=== PATIENT | male | born 1960 | race Caucasian/White ===

== ENCOUNTER 2020-12-11 20:39 | Emergency (ER) | payer OTHER, SELFPAY ==
[2020-12-11 20:40] VITALS: BP 158/82; PULSE 82; RESP 18; TEMP 36.7; O2SAT 94; BMI 39.7
--- NOTE | 2020-12-11 20:45 | CTR_ITS ---
PROCEDURE INFORMATION: Exam: CT Head Without Contrast Exam date and time: 12/11/2020 8:45 PM Age: 60 years old Clinical indication: Syncope and collapse; Patient HX: Overheated - syncope; Additional info: Fall TECHNIQUE: Imaging protocol: Computed tomography of the head without contrast. Radiation optimization: All CT scans at this facility use at least one of these dose optimization techniques: automated exposure control; mA and/or kV adjustment per patient size (includes targeted exams where dose is matched to clinical indication); or iterative reconstruction. COMPARISON: No relevant prior studies available. RADIATION DOSE METRICS: Total DLP (mGy-cm): 954.01 FINDINGS: There is mild generalized atrophy. There are mild areas of decreased attenuation in the periventricular white matter which is nonspecific but likely relates to small vessel ischemic change. There is no evidence for acute infarct. There is no evidence for mass. There is no hemorrhage. There are no extra-axial fluid collections. There is no midline shift. The skull is intact. The visualized paranasal sinuses are well aerated. There is atherosclerotic change of the cavernous carotid arteries. CT/CT head wo con* [id number] IMPRESSION: No evidence for acute intracranial injury. Radiation Dose CTDIVOL = (mGy): DLP = 954.01 (mGy-cm)
--- NOTE | 2020-12-11 20:45 | CTR_ITS ---
PROCEDURE INFORMATION: Exam: CT Cervical Spine Without Contrast Exam date and time: 12/11/2020 8:45 PM Age: 60 years old Clinical indication: Injury or trauma; Blunt trauma; Patient HX: Syncope and fall TECHNIQUE: Imaging protocol: Computed tomography images of the cervical spine without contrast. Radiation optimization: All CT scans at this facility use at least one of these dose optimization techniques: automated exposure control; mA and/or kV adjustment per patient size (includes targeted exams where dose is matched to clinical indication); or iterative reconstruction. COMPARISON: No relevant prior studies available. RADIATION DOSE METRICS: Total DLP (mGy-cm): 730.52 FINDINGS: There is some straightening of the normal cervical lordosis. This may be due to muscle spasm or patient positioning. There is no evidence of fracture or subluxation. The vertebral bodies are of normal height. The there is disc space narrowing at C5-C6 and C6-C7 with endplate spurring. The prevertebral soft tissues and the predental space are unremarkable. There are degenerative changes about the C1-C2 articulation. There are degenerative changes of the facet joints and uncovertebral joints. There is mild central stenosis at C5-C6 and C6-C7. There is no evidence for epidural hematoma. Carotid calcifications are noted. CT/CT cervical spin wo con* [id number] IMPRESSION: There is some straightening of the normal cervical lordosis. This may be due to muscle spasm or patient positioning. There is no evidence of fracture or subluxation. Radiation Dose CTDIVOL = (mGy): DLP = 730.52 (mGy-cm)
--- NOTE | 2020-12-11 20:46 | ECG_ITS ---
[facility] Test Date: 2020-12-11 Pat Name: KVNG GREEN Department: Room: Gender: Male Siene Maker: : 1960 Requested By: Terry Gómez Order Number: [id number] Dino MD: Mandi Short M.D. Measurements Intervals [place] Rate: 77 P: 57 CA: 210 QRS: 24 QRSD: 86 T: 127 QT: 394 QTc: 446 Interpretive Statements SINUS RHYTHM WITH FIRST DEGREE AV BLOCK NONSPECIFIC T-WAVE ABNORMALITY No previous ECG available for comparison Electronically Signed On 12-11-2020 22:51:08 CDT by Mandi Short M.D. [id number]
--- NOTE | 2020-12-11 20:49 | ED_ITS ---
HPI - Nausea/Vomiting/Diarrhea General: Chief complaint: Nausea/Vomiting/Diarrhea Stated complaint: N/V/FALL Time Seen by Provider: 12/11/20 20:41 Source: patient and EMS Mode of arrival: EMS Limitations: no limitations History of Present Illness: HPI Narrative: 60-year-old male is here by EMS after heat exposure today. 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 He states he did fall as well and hit the back of his head on a 2 x 4. He denies passing out but states he has felt weak ever since is continue to have some nausea. He denies any chest pain. Associated nausea: Yes Associated symtoms: Reports nausea; Denies chest pain or dysuria Review of Systems Const: Denies: fever(s), chills, body aches or change in appetite Eyes: Denies: blurry vision or eye discomfort ENMT: Denies: throat pain or dental pain Card: Denies: chest pain Resp: Denies: dyspnea GI: Reports: nausea and vomiting : Denies: dysuria Musc: Denies: neck pain or back pain Skin/Breast: Denies: rash Neuro: Reports: weakness in extremities Psych: Denies: depression Christ/Lymph: Denies: easy bruising All/Imm: Denies: urticaria Physical Exam Const: COMMON NORMALS: no acute distress, patient oriented x3 and healthy appearing HENMT: COMMON NORMALS: normocephalic and atraumatic HEAD & SCALP: normocephalic and atraumatic Eye: COMMON NORMALS: Equal, round and reactive pupils present and EOMs intact bilaterally PUPIL: Yes Equal, round and reactive pupils present Neck/C-Spine: COMMON NORMALS: full ROM and supple Chest: COMMONS NORMALS: normal inspection of the chest and normal palpation of entire chest wall Resp: COMMON NORMALS: normal respiratory effort, No retractions, No use of accessory muscles and clear to auscultation bilaterally AUSCULTATION: clear to auscultation bilaterally Cardio: COMMON NORMALS: regular rate, regular rhythm and No murmurs present (Cardio) RATE: regular rate RHYTHM: regular rhythm GI: COMMON NORMALS: Normal to inspection, nondistended, normoactive bowel sounds present, Soft to palpation, non-tender and no masses PALPATION: Yes Soft to palpation Extremity: COMMON NORMALS: normal to inspection and full ROM Neuro: COMMON NORMALS: patient oriented x3, moves all extremities and no focal motor deficits Psych: COMMON NORMALS: mental status grossly normal, Normal thought process present and cooperative THOUGHT PROCESS: Normal thought process present Skin: COMMON NORMALS: no rashes or lesions noted and no wounds GENERAL SKIN EXAM: no rashes or lesions noted Course Vital Signs: Vital signs: Vital Signs Temperature 98.0 F 12/11/20 20:40 Pulse Rate 80 12/11/20 21:52 Respiratory Rate 18 12/11/20 21:52 Blood Pressure 171/82 12/11/20 21:52 Pulse Oximetry 98 12/11/20 21:52 MDM - Nausea/Vomiting/Diarrhea MDM Narrative: Medical decision making narrative: Patient presents here with heat exhaustion likely causing his nausea and vomiting. He feels much improved here. His creatinine and CK are only mildly elevated he felt much improved after IV fluids. He is stable for discharge I told him to avoid the heat and will prescribe Zofran. He is to return if worsening. Lab Data: Labs: Lab Results 12/11/20 12/11/20 12/11/20 Range/Units 19:27 19:27 21:44 WBC 12.9 H (4.0-10.0) 10^3/ uL RBC 4.79 (4.1-5.3) 10^6/u L Hgb 13.6 (11.7-16.6) g/dL Hct 44.0 (42.0-52.0) % MCV 91.9 (80-94) fL MCH 28.4 (28.0-34.0) pg MCHC 30.9 (30.0-36.0) g/dL RDW 13.8 (12.1-15.1) % Plt Count 206 (130-400) 10^3/c mm MPV 10.6 H (7.4-10.4) fL Neut % (Auto) 78.9 % Lymph % (Auto) 15.1 % [place] % (Auto) 4.2 % Eos % (Auto) 1.1 % Baso % (Auto) 0.4 % Neut # (Auto) 10.21 H (1.8-7.7) 10^3/u L Lymph # (Auto) 2.0 (0.8-4.8) 10^3/u L [place] # (Auto) 0.5 (0.2-0.9) 10^3/u L Eos # (Auto) 0.1 (0.0-0.8) 10^3/u L Baso # (Auto) 0.1 (0.0-0.1) 10^3/u L Nucleated RBC % (a uto) 0 % Nucleated RBCs # 0.0 /100WBC Sodium 139 (136-145) mmol/L Potassium 4.1 (3.5-5.1) mmol/L Chloride 103 (98-107) mmol/L Carbon Dioxide 19 L (22-29) mmol/L Anion Gap 21.1 H (5-19) BUN 36 H (8-23) mg/dL Creatinine 1.7 H (0.7-1.2) mg/dL GFR Calculation 41.3 L (90-130) mL/min Glucose 215 H (65-115) mg/dL Calculated Osmolal ity 303 H (285-295) mOsm/k g Calcium 9.6 (8.5-10.5) mg/dL Total Bilirubin 0.3 (0.15-1.2) mg/dL AST 31 (0-40) U/L ALT 26 (0-41) U/L Alkaline Phosphata se 80 (40-130) IU/L Creatine Kinase 522 H* (39-308) U/L CK-MB (CK-2) 9.7 (0-10.4) ng/mL CK-MB (CK-2) Rel I ndex 1.8 (0.0-5.3) % Total Protein 7.4 (6.6-8.7) g/dL Albumin 4.7 (3.5-5.2) g/dL Globulin 2.7 (1.3-4.6) g/dL Urine Color Yellow (Yellow) Urine Appearance Clear (CLEAR) Urine pH 5 (5-7) Ur Specific Gravit y 1.025 (1.005-1.030) Urine Protein 3+ H (Negative) Urine Glucose (UA) Trace H (Normal) Urine Ketones Negative (Negative) Urine Blood 2+ H (Negative) Urine Nitrate Negative (Negative) Urine Bilirubin Neg (Negative) Urine Urobilinogen Norm (Negative) mg/dL Ur Leukocyte [place] Negative (Negative) Urine RBC 5-10 H (0-2) /hpf Urine WBC None (0-5) /hpf Ur Squamous Epith Cells 0-4 H (0-5) /hpf Amorphous Sediment Not Reportable Urine Bacteria Trace (NONE) /hpf Imaging Data^: CT Head: Radiologist's impression: [facility] [place] [address] CT Scan Report Signed Patient: Soy Blair Unit #: [id number] : 1960 Age/Sex: 60 / M ADM Date: 12/11/20 Loc: ER Room/Bed: Attending Dr: Ordering Provider/Ordering MD: Terry Gómez MD Date of Service: 12/11/20 Procedure(s): CT head wo con* [id number] Accession Number(s): [id number] Report Number: [id number] PROCEDURE INFORMATION: Exam: CT Head Without Contrast Exam date and time: 12/11/2020 8:45 PM Age: 60 years old Clinical indication: Syncope and collapse; Patient HX: Overheated - syncope; Additional info: Fall TECHNIQUE: Imaging protocol: Computed tomography of the head without contrast. Radiation optimization: All CT scans at this facility use at least one of these dose optimization techniques: automated exposure control; mA and/or kV adjustment per patient size (includes targeted exams where dose is matched to clinical indication); or iterative reconstruction. COMPARISON: No relevant prior studies available. RADIATION DOSE METRICS: Total DLP (mGy-cm): 954.01 FINDINGS: There is mild generalized atrophy. There are mild areas of decreased attenuation in the periventricular white matter which is nonspecific but likely relates to small vessel ischemic change. There is no evidence for acute infarct. There is no evidence for mass. There is no hemorrhage. There are no extra-axial fluid collections. There is no midline shift. The skull is intact. The visualized paranasal sinuses are well aerated. There is atherosclerotic change of the cavernous carotid arteries. CT/CT head wo con* [id number] IMPRESSION: No evidence for acute intracranial injury. Other CT: Radiologist's impression: [facility] ([place]) [facility]. [place] [id number] CT Scan Report Signed Patient: Soy Blair Unit #: [id number] : 1960 Age/Sex: 60 / M ADM Date: 12/11/20 Loc: ER Room/Bed: Attending Dr: Ordering Provider/Ordering MD: Terry Gómez MD Date of Service: 12/11/20 Procedure(s): CT cervical spin wo con* [id number] Accession Number(s): [id number] Report Number: [id number] PROCEDURE INFORMATION: Exam: CT Cervical Spine Without Contrast Exam date and time: 12/11/2020 8:45 PM Age: 60 years old Clinical indication: Injury or trauma; Blunt trauma; Patient HX: Syncope and fall TECHNIQUE: Imaging protocol: Computed tomography images of the cervical spine without contrast. Radiation optimization: All CT scans at this facility use at least one of these dose optimization techniques: automated exposure control; mA and/or kV adjustment per patient size (includes targeted exams where dose is matched to clinical indication); or iterative reconstruction. COMPARISON: No relevant prior studies available. RADIATION DOSE METRICS: Total DLP (mGy-cm): 730.52 FINDINGS: There is some straightening of the normal cervical lordosis. This may be due to muscle spasm or patient positioning. There is no evidence of fracture or subluxation. The vertebral bodies are of normal height. The there is disc space narrowing at C5-C6 and C6-C7 with endplate spurring. The prevertebral soft tissues and the predental space are unremarkable. There are degenerative changes about the C1-C2 articulation. There are degenerative changes of the facet joints and uncovertebral joints. There is mild central stenosis at C5-C6 and C6-C7. There is no evidence for epidural hematoma. Carotid calcifications are noted. CT/CT cervical spin wo con* [id number] IMPRESSION: There is some straightening of the normal cervical lordosis. This may be due to muscle spasm or patient positioning. There is no evidence of fracture or subluxation. Radiation Dose CTDIVOL = (mGy): DLP = 730.52 (mGy-cm) EKG Data^: EKG 1: Attestation: I personally reviewed and interpreted this EKG as follows: EKG interpretation date: 12/11/20 EKG interpretation time: 20:53 Interpretation: nsr hr [address] or t wave abnormalities qrs 86 qtc 425 Discharge Plan Discharge Patient Disposition: Home Clinical Impression: Vomiting and diarrhea Heat exposure Qualifiers: Encounter type: initial encounter Qualified Code(s): T67.9XXA - Effect of heat and light, unspecified, initial encounter Condition: Stable Prescriptions: New ondansetron 4 mg tablet,disintegrating 4 mg PO Q6H PRN (Reason: nausea and vomiting) Qty: 14 RF: 0 Discharge Orders: Discharge ED (Routine); Ordered 12/11/20 Ordered By: Terry Gómez Discharge Diet: Advance as tolerated Discharge Activity: Resume usual activity Patient Instructions: Heat Exhaustion (ED) Coding Level of Care Code ED Instructional Assistant for Panchito Fwd Exam Comprehensive
[2020-12-11 20:54] LABS: Basophils # 0.1 10^3/uL (0.0-0.1); Basophils % 0.4 %; Eosinophils # 0.1 10^3/uL (0.0-0.8); Eosinophils % 1.1 %; Hemoglobin 13.6 g/dL (11.7-16.6); Lymphocytes % 15.1 %; Mean Corpuscular HGB Conc 30.9 g/dL (30.0-36.0); Mean Corpuscular Hemoglobin 28.4 pg (28.0-34.0); Mean Corpuscular Volume 91.9 fL (80-94); Mean Platelet Volume 10.6 fL (7.4-10.4); Monocytes # 0.5 10^3/uL (0.2-0.9); Monocytes % 4.2 %; Neutrophils # 10.21 10^3/uL (1.8-7.7); Neutrophils % 78.9 %; Nucleated Red Blood Cells % 0 %; Platelet Count 206 10^3/cmm (130-400); Red Blood Count 4.79 10^6/uL (4.1-5.3); Red Cell Distribution Width 13.8 % (12.1-15.1); White Blood Count 12.9 10^3/uL (4.0-10.0)
[2020-12-11] MEDS: sodium chloride 0.9% 500 ML IV (21:02)
[2020-12-11 21:21] LABS: Alanine Aminotransferase 26 U/L (0-41); Albumin Level 4.7 g/dL (3.5-5.2); Alkaline Phosphatase 80 IU/L (40-130); Anion Gap 21.1 (5-19); Aspartate Amino Transferase 31 U/L (0-40); Blood Urea Nitrogen 36 mg/dL (8-23); Calcium 9.6 mg/dL (8.5-10.5); Carbon Dioxide 19 mmol/L (22-29); Chloride 103 mmol/L (98-107); Globulin 2.7 g/dL (1.3-4.6); Glomerular Filtration Rate 41.3 mL/min (90-130); Glucose 215 mg/dL (65-115); Osmolality Calculated 303 mOsm/kg (285-295); Potassium 4.1 mmol/L (3.5-5.1); Sodium 139 mmol/L (136-145); Total Bilirubin 0.3 mg/dL (0.15-1.2); Total Protein 7.4 g/dL (6.6-8.7)
[2020-12-11 21:22] LABS: Creatine Phosphokinase 522 U/L (39-308)
[2020-12-11 21:52] VITALS: BP 171/82; PULSE 80; RESP 18; O2SAT 98
[2020-12-11 21:53] LABS: Add Urine Microscopic? YES; Bilirubin Urine Neg (Negative); Blood Urine 2+ (Negative); Glucose Urine UA Trace (Normal); Ketones Urine Negative (Negative); Leukocyte Esterase Urine Negative (Negative); Nitrate Urine Negative (Negative); Protein Urine 3+ (Negative); Specific Gravity, Urine 1.025 (1.005-1.030); Urine Appearance Clear (CLEAR); Urine Color Yellow (Yellow); Urobilinogen Urine Norm (Negative); pH Urine 5 (5-7)
[2020-12-11 21:58] LABS: Add Urine Culture? No; Bacteria Urine TRACE /hpf; Squamous Epithelial Cell Urine 0-4 /hpf (0-5)
[2020-12-11 22:01] LABS: CKMB 9.7 ng/mL (0-10.4); CKMB Relative Index 1.8 % (0.0-5.3)
[2020-12-11 22:06] VITALS: BP 147/87; PULSE 84; RESP 16; O2SAT 92
== END 2020-12-11 22:13 | disposition home or self-care (01) ==
PROVIDERS: Emergency Provider Emergency Medicine
DX: T67.9XXA Effect of heat and light, unspecified, initial encounter (principal); R11.11 Vomiting without nausea; R19.7 Diarrhea, unspecified
CPT/HCPCS: 70450; 72125; 80053; 81001; 82550; 82553; 85025; 93005; 96360; 99284; J7040